=== PATIENT | female | born 1955 | race Caucasian/White ===

== ENCOUNTER 2017-10-29 06:19 | Observation (INO) | payer BC ==
--- NOTE | 2017-10-28 11:37 | PDGENHP ---
History and Physical History and Physical: Assessment and Plan: 1. Cystocele, luis a Shannon has stage III pelvic organ prolapse which is predominantly her anterior and apical compartments. We reviewed all conservative and surgical options. At the end of our discussion she is interested in scheduling a robotic supracervical hysterectomy, sacral colpopexy, and perineorrhaphy. I will perform her preoperative counseling over the phone. She would like to wait until October after her 62th birthday. 2. Third degree uterine prolapse Subjective: Patient ID: Mirtha Blake is a 61 y.o. female who presents to [facility] for relapse. LEXA Shannon is a 61-year-old para 2 woman who presents to discuss pelvic organ prolapse. She has noticed a bulge protruding from her vagina for over one year. She fortunately is able to empty her bladder and bowels fairly normally. She has urinary urgency but no leaking. She has no stress incontinence. She does have dyspareunia which is both from dryness and bumping into tissue. She is a very active woman and likes to exercise. However she has greatly reduced her regimen secondary to her prolapse as well as knee problems requiring a bilateral knee replacement. She is and lives in [facility]. 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 PastMedicalHistory Past Medical History: Diagnosis Date Allergy to pollen Cancer (HC code) Basal cell carcinoma Complication of anesthesia Nausea, problems waking up Dermatologic disease Urinary tract infection PastSurgicalHistory Past Surgical History: Procedure Laterality Date SECTION 1985 OVARY REMOVAL PREVIOUS SURGERIES CURRENT MEDICATIONS: Current Outpatient Prescriptions Medication Sig cholecalciferol (VITAMIN D3) 2,000 unit capsule Take 2,000 Units by mouth daily. TURMERIC ROOT EXTRACT PO Take by mouth daily. VITAMIN B COMPLEX PO Take by mouth daily. No current facility-administered medications for this visit. ALLERGIES: Patient has no known allergies. I have reviewed, verified and agree with the past medical, surgical, , family, social and ROS history as documented by the RN today. Objective: Vital Signs: Visit Vitals BP 122/76 Pulse 78 Temp 36.9 C (98.5 F) (Temporal Artery) Resp 16 Ht 1.702 m (5' 7") Wt 83.7 kg (184 lb 9.6 oz) SpO2 97% BMI 28.91 kg/m Physical Exam Gen: This is an alert, well developed woman in no distress. Neuro: She moves all extremities. Psych: She is appropriate, oriented, with normal affect. Neck: No thyroid enlargement, adenopathy, or tenderness. Lungs: Clear to ascultation, no wheezes or rales. Heart: Regular rate and rhythm without obvious murmurs. Abdomen: Soft, non-tender, without guarding, rebound, or masses. Extremities: No edema or cyanosis. Pelvic: Normal external genitalia. Cervix without lesions or discharge. Uterus normal sized, mobile, non-tender. Adnexa non-tender without enlargement. She has a third-degree cystocele a borderline third-degree uterine prolapse and second-degree rectocele. The introitus is gaping. The vagina is atrophic. POP-Q Values are: Aa= +2, Ba= +3, C= +1 Gh= 5.5, pb= 2, tvl= 10 Ap= 0, Bp= 0, D= -3 DATA: I have reviewed the pertinent medical records. TIME/COMMUNICATION: I personally spent a total of 45 minutes. Of that 35 minutes was counseling/ coordination of patient's care. See my note above for details. Kevin Mejia MD Board Certified Female Pelvic Medicine and Reconstructive Surgery Director of Minimally Invasive Gynecologic Surgery, [facility] Surgeon in Minimally Invasive Gynecologic Surgery [facility] Surgeon in Robotic Surgery
[2017-10-29] MEDS ORDERED: ACETAMINOPHEN 500 MG TAB PO ONE (06:48)
[2017-10-29] MEDS ORDERED: ceFAZolin 2 GM/SWFI 2 GM/20 ML SYR IVP ONE (06:48)
[2017-10-29] MEDS ORDERED: LR 1,000 ML IV ONE (06:48)
[2017-10-29] MEDS ORDERED: PHENAZOPYRIDINE HCL 200 MG TAB PO ONE (06:48)
[2017-10-29] MEDS ORDERED: LIDOCAINE 1% 2 ML INJ ID PRN (06:48)
[2017-10-29] MEDS ORDERED: ceFAZolin 2 GM/DEXTROSE 100 ML IV ONE (07:00)
[2017-10-29] MEDS ORDERED: BUPIVACAINE/EPI 0.5% 30 ML SDV ONE (07:52)
[2017-10-29] MEDS ORDERED: FAMOTIDINE 20 MG in NS 100 ML IV ONE (07:53)
[2017-10-29] MEDS ORDERED: FAMOTIDINE 20 MG/NACL 50 ML IV ONE (08:00)
[2017-10-29] MEDS ORDERED: SCOPOLAMINE HYDROBROMIDE 1 MG/3 DAYS PATCH TD SCH (08:00)
[2017-10-29] MEDS ORDERED: fentaNYL 250 MCG/5 ML INJ ONE (08:16)
[2017-10-29] MEDS ORDERED: PROPOFOL/EMULSION 500 MG/50 ML BOTTLE IV ONE (08:17)
[2017-10-29] MEDS ORDERED: NALOXONE HCL 0.4 MG/ML INJ IVP PRN (09:26)
[2017-10-29] MEDS ORDERED: ONDANSETRON 4 MG/2 ML VIAL IVP PRN ×2 (09:26→10:29)
[2017-10-29] MEDS ORDERED: LABETALOL HCL 5 MG/ML 20 ML MDV IVP PRN (09:26)
[2017-10-29] MEDS ORDERED: HYDROmorphONE/DILAUDID 2 MG/ML INJ IVP PRN (09:26)
[2017-10-29] MEDS ORDERED: fentaNYL 100 MCG/2 ML INJ IVP PRN (09:26)
[2017-10-29] MEDS ORDERED: MEPERIDINE 25 MG/0.5 ML AMP IVP PRN (09:26)
[2017-10-29] MEDS ORDERED: oxyCODONE IR 5 MG TAB PO PRN (09:26)
[2017-10-29] MEDS ORDERED: PROMETHAZINE HCL 25 MG/ML INJ IVP PRN ×2 (09:26→10:28)
[2017-10-29] MEDS ORDERED: ALBUTEROL 3 ML DEYVIAL IH PRN (09:26)
--- NOTE | 2017-10-29 09:29 | PDANEPAE ---
ANE Past Medical History - Cardiovascular History Hx Hypertension: No Hx Arrhythmias: No Hx Chest Pain: No Hx Coronary Artery / Peripheral Vascular Disease: No Hx CHF / Valvular Disease: No Hx Palpitations: Yes Cardiovascular History Comment: INTERMITTENT RELATED TO PAC'S. CARDIAC WORKUP 2016 NEG - Pulmonary History Hx COPD: No Hx Asthma/Reactive Airway Disease: No Hx Recent Upper Respiratory Infection: No Hx Oxygen in Use at Home: No Hx Sleep Apnea: No Sleep Apnea Screening Result - Last Documented: Negative - Neurologic History Hx Cerebrovascular Accident: No Hx Seizures: No Hx Dementia: No - Endocrine History Hx Diabetes: No - Renal History Hx Renal Disorders: No - Liver History Hx Hepatic Disorders: No - Neurological & Psychiatric Hx Hx Neurological and Psychiatric Disorders: No - Cancer History Hx Cancer: Yes Cancer History Comment: SKIN - Congenital Disorder History Hx Congenital Disorders: No - GI History Hx Gastrointestinal Disorders: No - Other Health History Other Health History: OSTEOARTHRITIS - Chronic Pain History Chronic Pain: Yes (CRISTI KNEE'S,VAGINALLY) - Surgical History Prior Surgeries: RT OVARIAN CYSTECTOMY. ANE Review of Systems Review of Systems: - Exercise capacity METS (RN): 4 METS ANE Patient History - Allergies Allergies/Adverse Reactions: No Known Allergies Allergy (Unverified 09/18/17 14:34) - Home Medications Home Medications: Acetaminophen [Tylenol 325mg (*)] 325 mg PO DAILY PRN 09/18/17 [Last Taken 10/18] Cholecalciferol Vit D3 [Vitamin D3 (*)] 1,000 units PO DAILY 09/18/17 [Last Taken 10/18/17] Herbals/Supplements -Info Only 1 ea PO DAILY 09/18/17 [Last Taken 10/18/17] Vitamin B Complex [Vitamin B Complex (OTC)] 1 each PO DAILY 09/18/17 [Last Taken 10/18/17] - NPO status NPO Since - Liquids (Date): 10/29/17 NPO Since - Liquids (Time): 06:30 NPO Since - Solids (Date): 10/28/17 - Smoking Hx Smoking Status: Never smoked ANE Labs/Vital Signs - Vital Signs Blood Pressure: 123/91 Heart Rate: 75 Respiratory Rate: 16 O2 Sat (%): 95 Height: 170.18 cm Weight: 79.379 kg ANE Physical Exam - Airway Mallampati Score: Class 2 Mouth exam: normal dental/mouth exam - Pulmonary Pulmonary: no respiratory distress, clear to auscultation - Cardiovascular Cardiovascular: regular rate and rhythym, no murmur, rub, or gallop - ASA Status ASA Status: II ANE Anesthesia Plan Anesthesia Plan: general endotracheal anesthesia
[2017-10-29] MEDS ORDERED: KETOROLAC 30 MG/1 ML SDV ONE (09:44)
[2017-10-29] MEDS ORDERED: SUCCINYLCHOLINE CHLORIDE 200 MG/10 ML SYR IVP ONE (09:44)
[2017-10-29] MEDS ORDERED: ONDANSETRON 4 MG/2 ML VIAL ONE (09:44)
[2017-10-29] MEDS ORDERED: ROCURONIUM 50 MG/5 ML VIAL ONE (09:44)
--- NOTE | 2017-10-29 10:27 | PDHPUP ---
History & Physical Update H&P update statement: This history and physical update is based on an assessment of the patient which was completed after admission or registration (within 24 hours), but prior to the surgery/procedure. H&P update: H&P reviewed & patient examined, no change in patient's condition since H&P completed
[2017-10-29] MEDS ORDERED: HYDROmorphONE/DILAUDID 1 MG/ML INJ IVP PRN (10:28)
[2017-10-29] MEDS ORDERED: HYDROCODONE/APAP 5/325 TAB PO PRN (10:28)
--- NOTE | 2017-10-29 10:28 | POSTOPPROG ---
Post Op Note Date of Operation: 10/29/17 Surgeon: Kevin Mejia Job Foreman: Janet Prieto Anesthesiologist: Jhony Anesthesia: GET(General Endotracheal) Pre-op Diagnosis: Uterovaginal prolapse Post-op Diagnosis: same Procedure: Robotic hyst/LSO, sacrocervicopexy with mesh, cysto Findings: Ureters function at end of case Inf/Abcess present in the surg proc area at time of surgery?: No EBL: Minimal Complications: None Specimen(s): Uterus, left tube and ovary
[2017-10-29] MEDS ORDERED: ONDANSETRON DISINTEGRATING 4 MG TAB PO PRN (10:29)
[2017-10-29] MEDS ORDERED: LR 1,000 ML IV SCH (10:30)
--- NOTE | 2017-10-29 10:55 | POSTANESTH ---
Post Anesthetic Evaluation Cardiovascular Status: Normal, Stable Respiratory Status: Normal, Stable Level of Consciousness/Mental Status: Can Participate in Eval, Mildly Sleepy, Arousable Pain Control: Adequate, Prn Tx Ordered Nausea/Vomiting Control: Adequate, Prn Tx Ordered Complications Possibly Related to Anesthesia: None Noted
--- NOTE | 2017-10-29 11:14 | GOP ---
[f rep st] OPERATIVE REPORT DATE OF OPERATION: 10/29/2017 SURGEON: Kevin Mejia MD WINDOWS SECURITY ANALYST: Janet Prieto CFA ANESTHESIA: General. PREOPERATIVE DIAGNOSIS: 1. Uterine prolapse. 2. Cystocele. 3. Rectocele. POSTOPERATIVE DIAGNOSIS: 1. Uterine prolapse. 2. Cystocele. 3. Rectocele. PROCEDURE PERFORMED: 1. Robotic-assisted laparoscopic hysterectomy, left salpingo-oophorectomy. 2. Sacrocervicopexy with mesh. 3. Repair of cystocele and rectocele. 4. Perineorrhaphy. 5. Cystoscopy. FINDINGS: SPECIMENS: Uterus, left tube and ovary. ESTIMATED BLOOD LOSS: Scant. DESCRIPTION OF PROCEDURE: The patient was taken to the operating room where she identified. General anesthesia was administered and found to be adequate. She was placed in the lithotomy position and prepared and draped in normal sterile fashion. A Bundy catheter was placed in her bladder. A 1 cm infraumbilical incision was made with a scalpel. The Veress needle with the CO2 gas flowing w as advanced into the peritoneal cavity. The abdomen was insufflated with carbon dioxide gas. The 12 mm trocar, followed by the laparoscope were then inserted. The upper abdomen was unremarkable. Two lateral ports were placed on either side under direct visualization. She then was placed in [place] en[place] position and the Da Iveth robot docked on the left side. The instruments were brought into th e abdominal cavity under direct visualization. The patient previously had her right tube and ovary removed. The remainder of the pelvis was unremar kable. The left round ligament was divided. The anterior leaf of the broad ligament was incised tow eliseo the bifurcation of the left common iliac vessels. The course of the ureters was easy to identify . A window was created anterior to the left ureter to skeletonize the infundibulopelvic vessels. Th ey were then cauterized and transected. The anterior leaf of the broad ligament was then incised ove r the left uterine vessels and across the cervix. The left uterine vasculature was then cauterized a nd transected. The right round ligament was divided. The anterior leaf was further incised and the right uterine va sculature and cauterized and transected. The uterus was then bivalved to aid in removal through the umbilicus. The uterus and upper two-thirds of the cervix were amputated from the lower third of the cervix with the hot asha. The specimen was placed in the right upper quadrant for later removal. The Colpo-Probe was then placed in the vagina. The bladder was further dissected off the anterior va ginal wall down to the level of the bladder neck. The rectovaginal space was then entered and the re ctum dissected off the posterior vaginal wall down to the level of the perineal body. Measurements w ere then obtained and the mesh trimmed to size. The peritoneum over the sacral promontory was incised. The fat pad was gently dissected off the ante rior longitudinal ligament. The mesh was brought into the abdominal cavity. Three sutures of 4-0 Go re-Magdaleno were used to attach the distal posterior mesh to the perineal body. Two additional rows of Go re-Magdaleno sutures were placed posteriorly, three rows were placed anteriorly to suture down to the level of bladder neck and laterally to the paravaginal tissue. The Colpo-Probe was removed. The sacral a rm of the mesh was placed over the promontory and the tension adjusted. I then scrubbed back into the case to examine the vagina. The tension was further adjusted to resolv e the cystocele and rectocele without undue tension on the vagina. Three sutures of 2-0 [place]-Magdaleno wer e used to attach the sacral arm of the mesh to the anterior longitudinal ligament at the level of the upper first sacral vertebral body. The mesh was then covered with peritoneum. The robot was then u ndocked. The specimen removed through the umbilicus. The fascia was closed with 0 Vicryl, skin with 4-0 Monocryl and surgical adhesive. Cystoscopy was then performed. Both ureters had vigorous jets of urine. There was no evidence of bl adder, nor urethral injury seen. No mesh, nor suture was seen within the bladder, nor urethra. No o bvious pathology was seen. A transverse incision was then made along the perineal body. The epithelium was gently dissected off the underlying rectovaginal connective tissue. The rectovaginal septum was then reattached to the p erineal body with interrupted sutures of 0 Vicryl. The transverse perineal and bulbous spongiosis mu scles were plicated with 0 Vicryl. The excess epithelium was trimmed and closed with a running 2-0 V icryl suture. Vaginal packing was then placed. Anesthesia was reversed. The patient taken the PACU awake, in stable condition. COMPLICATIONS: None. DISPOSITION: Patient stable to PACU. /[id number]/MODL
[2017-10-29] MEDS: ceFAZolin 2 GM/DEXTROSE 100 ML IV SCH ×2 (15:00→22:47)
[2017-10-29] MEDS: KETOROLAC 30 MG/1 ML SDV IVP SCH ×3 (15:12→22:52)
[2017-10-29] MEDS: SIMETHICONE 80 MG TAB CHEW PO SCH ×3 (15:28→22:54)
[2017-10-29] MEDS: DOCUSATE SODIUM 100 MG CAP PO SCH (22:52)
[2017-10-30] MEDS: KETOROLAC 30 MG/1 ML SDV IVP SCH (02:07)
[2017-10-30] MEDS: SIMETHICONE 80 MG TAB CHEW PO SCH (07:40)
[2017-10-30 08:54] VITALS: BP 98/65
[2017-10-30] MEDS: DOCUSATE SODIUM 100 MG CAP PO SCH (08:57)
== END 2017-10-30 11:00 | disposition home or self-care (01) ==
LOC: F3E 06:19 → FOB 11:47
PROVIDERS: ADMIT Obstetrics & Gynecology; ATTEND Obstetrics & Gynecology
PROC: 0USG4ZZ Reposition Vagina, Percutaneous Endoscopic Approach (ICD-10-PCS; principal; 2017-10-29 08:15)
PROC: 0DQP0ZZ Repair Rectum, Open Approach (ICD-10-PCS; principal; 2017-10-29 08:15)
PROC: 0UT94ZZ Resection of Uterus, Percutaneous Endoscopic Approach (ICD-10-PCS; principal; 2017-10-29 08:15)
PROC: 0UTC4ZZ Resection of Cervix, Percutaneous Endoscopic Approach (ICD-10-PCS; principal; 2017-10-29 08:15)
PROC: 0TJ98ZZ Inspection of Ureter, Via Natural or Artificial Opening Endoscopic (ICD-10-PCS; principal; 2017-10-29 08:15)
PROC: 0UT64ZZ Resection of Left Fallopian Tube, Percutaneous Endoscopic Approach (ICD-10-PCS; principal; 2017-10-29 08:15)
PROC: 0UT14ZZ Resection of Left Ovary, Percutaneous Endoscopic Approach (ICD-10-PCS; principal; 2017-10-29 08:15)
DX: N81.3 Complete uterovaginal prolapse (principal); Z96.653 Presence of artificial knee joint, bilateral; Z85.828 Personal history of other malignant neoplasm of skin; Z87.440 Personal history of urinary (tract) infections
CPT/HCPCS: 57250; 57425; 58571; G0378; C1763; J0330; J0690; J1885; J2405; J2704; J3010

== ENCOUNTER → 2018-03-19 | Outpatient (CLI) | payer BC | LOC: FIMAGING 13:43 | PROVIDERS: ATTEND Orthopaedic Surgery | DX: Z01.818 Encounter for other preprocedural examination (principal); M17.11 Unilateral primary osteoarthritis, right knee; M94.8X6 Other specified disorders of cartilage, lower leg ==

== ENCOUNTER → 2018-04-06 | Outpatient (CLI) | payer BC | LOC: FIMAGING 08:56 | PROVIDERS: ATTEND Orthopaedic Surgery | DX: M17.11 Unilateral primary osteoarthritis, right knee (principal) ==

== ENCOUNTER 2018-04-08 10:21 | Observation (INO) | payer BC ==
[~2018-04-08 10:21] MED LIST: ROPIVACAINE 0.2% 80 MG, EPINEPHrine 0.2 MG, KETOROLAC TROMETHAMINE 30 MG in SYRINGE 0 ML IU ONE; TRANEXAMIC ACID 3,000 MG in NS (SYRINGE) 50 ML IRR ONE
[2018-04-08] MEDS ORDERED: FAMOTIDINE 20 MG TAB PO ONE (11:04)
[2018-04-08] MEDS ORDERED: ceFAZolin 2 GM/DEXTROSE 100 ML IV ONE (11:04)
[2018-04-08] MEDS ORDERED: LIDOCAINE 1% 2 ML INJ ID PRN (11:04)
[2018-04-08] MEDS ORDERED: LR 1,000 ML IV ONE (11:04)
[2018-04-08] MEDS ORDERED: DEXAMETHASONE 4 MG/ML VIAL IVP ONE (11:04)
[2018-04-08] MEDS ORDERED: ACETAMINOPHEN 325 MG TAB PO ONE (11:04)
[2018-04-08] MEDS ORDERED: TRANEXAMIC ACID 3,000 MG/50 ML BAG IRR ONE (11:17)
[2018-04-08] MEDS ORDERED: PROPOFOL/EMULSION 500 MG/50 ML BOTTLE IV ONE (14:11)
--- NOTE | 2018-04-08 14:11 | PDANEPAE ---
ANE History of Present Illness 62 year old female for right knee arthroplasty. Otherwise healthy. ANE Past Medical History - Cardiovascular History Hx Hypertension: No Hx Arrhythmias: No Hx Chest Pain: No Hx Coronary Artery / Peripheral Vascular Disease: No Hx CHF / Valvular Disease: No Hx Palpitations: Yes Cardiovascular History Comment: INTERMITTENT RELATED TO PAC'S. CARDIAC WORKUP 2016 NEG - Pulmonary History Hx COPD: No Hx Asthma/Reactive Airway Disease: No Hx Recent Upper Respiratory Infection: No Hx Oxygen in Use at Home: No Hx Sleep Apnea: No Sleep Apnea Screening Result - Last Documented: Negative - Neurologic History Hx Cerebrovascular Accident: No Hx Seizures: No Hx Dementia: No - Endocrine History Hx Diabetes: No - Renal History Hx Renal Disorders: No - Liver History Hx Hepatic Disorders: No - Neurological & Psychiatric Hx Hx Neurological and Psychiatric Disorders: No - Cancer History Hx Cancer: Yes Cancer History Comment: SKIN - Congenital Disorder History Hx Congenital Disorders: No - GI History Hx Gastrointestinal Disorders: No - Other Health History Other Health History: OSTEOARTHRITIS - Chronic Pain History Chronic Pain: Yes (CRISTI KNEE'S,VAGINALLY) - Surgical History Prior Surgeries: RT OVARIAN CYSTECTOMY. ANE Review of Systems Review of systems is: negative Review of Systems: - Exercise capacity METS (RN): 4 METS ANE Patient History - Allergies Allergies/Adverse Reactions: No Known Allergies Allergy (Verified 04/08/18 11:30) - Home Medications Home Medications: Acetaminophen [Tylenol 325mg (*)] 325 mg PO DAILY PRN 09/18/17 [Last Taken 04/07 09:00] Cholecalciferol Vit D3 [Vitamin D3 (*)] 1,000 units PO DAILY 09/18/17 [Last Taken 03/22/18] Herbals/Supplements -Info Only 1 ea PO DAILY 09/18/17 [Last Taken 03/22/18] Vitamin B Complex [Vitamin B Complex (OTC)] 1 each PO DAILY 09/18/17 [Last Taken 03/22/18] - NPO status NPO Since - Liquids (Date): 04/08/18 NPO Since - Liquids (Time): 09:30 NPO Since - Solids (Date): 04/07/18 NPO Since - Solids (Time): 18:30 - Smoking Hx Smoking Status: Never smoked ANE Labs/Vital Signs - Vital Signs Blood Pressure: 134/77 Heart Rate: 65 Respiratory Rate: 16 O2 Sat (%): 96 Height: 171.45 cm Weight: 81.647 kg ANE Physical Exam - Airway Neck exam: FROM Mallampati Score: Class 2 Mouth exam: normal dental/mouth exam - Pulmonary Pulmonary: no respiratory distress - Cardiovascular Cardiovascular: regular rate and rhythym - ASA Status ASA Status: I
[2018-04-08] MEDS ORDERED: fentaNYL 100 MCG/2 ML INJ ONE (14:14)
[2018-04-08] MEDS ORDERED: METOCLOPRAMIDE 10 MG/2 ML VIAL IVP PRN (14:48)
[2018-04-08] MEDS ORDERED: PROMETHAZINE HCL 25 MG SUPPR PR PRN (14:48)
[2018-04-08] MEDS ORDERED: POLYETHYLENE GLYCOL 3350 17 GM PKT PO PRN (14:48)
[2018-04-08] MEDS ORDERED: MAGNESIUM HYDROXIDE 30 ML UDCUP PO PRN (14:48)
[2018-04-08] MEDS ORDERED: TEMAZEPAM 15 MG CAP PO PRN (14:48)
[2018-04-08] MEDS ORDERED: ONDANSETRON 4 MG/2 ML VIAL IVP PRN (14:48)
[2018-04-08] MEDS ORDERED: LACTULOSE 20 GM/30 ML UDCUP PO PRN (14:48)
[2018-04-08] MEDS ORDERED: PROMETHAZINE HCL 25 MG/ML INJ IVP PRN (14:48)
[2018-04-08] MEDS ORDERED: ONDANSETRON DISINTEGRATING 4 MG TAB PO PRN (14:48)
[2018-04-08] MEDS ORDERED: diphenhydrAMINE 25 MG CAP PO PRN (14:48)
[2018-04-08] MEDS ORDERED: DIPHENOXYLATE/ATROPINE LOMOTIL 1 TAB PO PRN (14:48)
[2018-04-08] MEDS ORDERED: BISACODYL 10 MG SUPP PR PRN (14:48)
[2018-04-08] MEDS ORDERED: LR 1,000 ML IV SCH (15:00)
[2018-04-08] MEDS ORDERED: LABETALOL HCL 5 MG/ML 20 ML MDV IVP PRN (15:01)
[2018-04-08] MEDS ORDERED: LR 500 ML IV PRN (15:01)
[2018-04-08] MEDS ORDERED: ALBUTEROL 3 ML DEYVIAL IH PRN (15:01)
[2018-04-08] MEDS ORDERED: NALOXONE HCL 0.4 MG/ML INJ IVP PRN (15:01)
[2018-04-08] MEDS ORDERED: fentaNYL 100 MCG/2 ML INJ IVP PRN (15:01)
--- NOTE | 2018-04-08 15:58 | POSTOPPROG ---
Post Op Note Date of Operation: 04/08/18 Surgeon: Felicia Paniagua Ship Boat Or Barge Mate: Jennifer Paniagua PAc Anesthesiologist: Maribell Anesthesia: Spinal Pre-op Diagnosis: R knee DJD Post-op Diagnosis: same Indication: pain Procedure: R TKA Findings: DJD knee Inf/Abcess present in the surg proc area at time of surgery?: No EBL: 50-100
--- NOTE | 2018-04-08 16:01 | POSTANESTH ---
Post Anesthetic Evaluation Cardiovascular Status: Normal, Stable Respiratory Status: Normal, Stable Level of Consciousness/Mental Status: Can Participate in Eval Pain Control: Adequate, Prn Tx Ordered Nausea/Vomiting Control: Adequate, Prn Tx Ordered Complications Possibly Related to Anesthesia: None Noted (adductor canal block done in PACU with ultrasound guidance. Images in chart. Bupivicaine .5% 20 cc given. No complications.)
[2018-04-08] MEDS: ACETAMINOPHEN 325 MG TAB PO SCH ×2 (18:04→22:50)
[2018-04-08] MEDS: SENNOSIDES/DOCUSATE SODIUM TAB PO SCH (20:00)
[2018-04-08] MEDS: FAMOTIDINE 20 MG TAB PO SCH (20:02)
[2018-04-08] MEDS: ASPIRIN 81 MG CHEWABLE TAB PO SCH (20:02)
[2018-04-08] MEDS: oxyCODONE IR 5 MG TAB PO PRN (22:42)
[2018-04-08] MEDS: ceFAZolin 2 GM/DEXTROSE 100 ML IV SCH (22:51)
[2018-04-08] MEDS: CYCLOBENZAPRINE 10 MG TAB PO PRN (23:49)
[2018-04-09] MEDS: ACETAMINOPHEN 325 MG TAB PO SCH (05:01)
[2018-04-09] MEDS: ceFAZolin 2 GM/DEXTROSE 100 ML IV SCH (05:02)
[2018-04-09 08:01] VITALS: BP 109/70
[2018-04-09] MEDS: FAMOTIDINE 20 MG TAB PO SCH (08:23)
[2018-04-09] MEDS: ASPIRIN 81 MG CHEWABLE TAB PO SCH (08:23)
[2018-04-09] MEDS: SENNOSIDES/DOCUSATE SODIUM TAB PO SCH (08:23)
[2018-04-09] MEDS: oxyCODONE IR 5 MG TAB PO PRN (09:04)
[2018-04-09] MEDS: CYCLOBENZAPRINE 10 MG TAB PO PRN (09:04)
--- NOTE | 2018-04-09 10:53 | GOP ---
DATE OF OPERATION: 04/08/2018 SURGEON: Christiano Paniagua MD KITCHEN STEWARD: RONAL Salas. ANESTHESIA: Spinal. PREOPERATIVE DIAGNOSIS: Right knee osteoarthritis. POSTOPERATIVE DIAGNOSIS: Right knee osteoarthritis. PROCEDURE PERFORMED: Right total knee arthroplasty with computer navigation, robotic assist. FINDINGS: ESTIMATED BLOOD LOSS: 30 cc. INDICATIONS: The patient is a 62-year-old female with severe and progressive pain and deformity of t he right knee unresponsive to conservative care. The risks and benefits of surgical intervention wer e explained in detail. DESCRIPTION OF PROCEDURE: The patient was brought to the operative room and placed on the table in t he supine position. Spinal anesthesia was induced without difficulty. A pneumatic tourniquet was appl ied about the right proximal thigh, and the leg was prepped and draped in a sterile fashion. The leg noguera was applied. After exsanguination by elevation the tourniquet was inflated to 250 mmHg. Incision was made anterior medial from the tibial tuberosity to a point 2 cm proximal to the superior pole of the patella. Medial parapatellar arthrotomy was carried out from the superior pole of the pa tella and posteriorly in line with the fibers of the Type II VMO. The medial collateral ligament was elevated and the infrapatellar fat pad was resected. The patella was everted and the articular surface was excised. A 35 mm patellar button was placed. Attention was turned first to the distal aspect of the femur. After exposure of the femur, 2 half pi ns were placed for fixation of the femoral array. In a similar fashion, 2 pins were placed anteromed ial on the tibia for fixation of the tibial array. External land marking and registration of the hip center were performed without difficulty. Internal femoral and tibial registration were carried out without difficulty and the femoral and tibial checkpoints were placed and verified for accuracy. Attention was turned to the femur. The foot print for the size 4 femoral component was cut with the saw using the [employer] robotic system and verified for accuracy against the CT based plan. In a similar f ashion, the saw was used to cut the footprint for the size 4 tibial component using the [employer] system an d verified for accuracy against the CT based plan. The tibial articular surface was excised without d ifficulty, followed by the intercondylar box cut. The knee was extended and the remnants of the medial and lateral meniscus were excised. The posterior capsule was injected with ropivacaine, epinephrine and Toradol. A size 4 tibial tray was positioned . Trial reduction was then carried out. There was excellent range of motion, alignment, and stability using the 4 x 11 mm polyethylene. All trials were then removed. The joint was thoroughly irrigated and carefully dried. The press-fit c omponents were implanted. The permanent 4 x 11 mm polyethylene was placed without difficulty. The tourniquet was deflated and all bleeders were coagulated. The wound was thoroughly irrigated and closed using interrupted sutures of 2-0 Vicryl for the joint capsule. The subcu was closed with 3-0 V icryl and the skin with 4-0 Monocryl. Dermabond and Steri-Strips were applied followed by a compress maura dressing. The patient was then moved from the operating room to the recovery room in good conditi on, having tolerated the procedure well. PATHOLOGY: Severe lateral patellofemoral osteoarthritis. /[id number]/MODL
--- NOTE | 2018-04-09 17:17 | SOAPPROG ---
SOAP Progress Note Assessment/Plan: Assessment: Patient is doing well POD 1 s/p R TKA Pain management: pain is well controlled on oral pain meds. VTE ppx: recommend aspirin 81 mg BID for 4 weeks, cont MINDY and SCDs D/c planning: d/c to home today pending release from PT Plan: 04/09/18 17:16 04/09/18 17:17 Subjective: patient is doing well today, denies SOb ,chest pain and n/v Objective: Vital Signs Temp Pulse Resp BP Pulse Ox 36.3 C 68 14 109/70 96 04/09/18 08:00 04/09/18 08:00 04/09/18 08:00 04/09/18 08:00 04/09/18 08:00 Laboratory Results 04/09/18 04:18 04/08/18 04/09/18 04/10/18 05:59 05:59 05:59 Intake Total 1500 300 Output Total 1050 450 Balance 450 -150 RLE; incision dressing is clean and dry, NVI, +pf/df ICD10 Worksheet Patient Problems: Problems Problem Status Onset Cystocele, lateral Acute Primary localized osteoarthritis of right knee Acute Third degree uterine prolapse Acute
--- NOTE | 2018-04-10 07:05 | GDS ---
ADMISSION DIAGNOSIS: Right knee osteoarthritis. DISCHARGE DIAGNOSIS: Right knee osteoarthritis. PROCEDURE: Right total knee arthroplasty, robotic assisted. VTE PROPHYLAXIS: Recommend aspirin 81 mg twice daily for 4 weeks. BRIEF DESCRIPTION OF HOSPITAL STAY: Patient was admitted for an elective joint arthroplasty. The pa seven tolerated the procedure well and has passed physical therapy. The patient was given appropriat e antibiotic prophylaxis and venous thromboembolism prophylaxis. The patient's pain was well control led on oral pain medication, patient was holding down food, and had urinated. Decision was made to d ischarge the patient. The patient was given post-operative prescriptions pre-operatively. PLAN: To follow up as scheduled with Dr. Paniagua's office April 27 at 12:45 p.m. /[id number]/MODL
== END 2018-04-09 11:30 | disposition home or self-care (01) ==
LOC: F3N 10:46 → INTOOBSV 10:46 → F3N 17:39
PROVIDERS: ADMIT Orthopaedic Surgery; ATTEND Orthopaedic Surgery
DX: M17.11 Unilateral primary osteoarthritis, right knee (principal)
CPT/HCPCS: 27447; 73560; 97116; 97161; G0378; J0171; J0690; J1100; J1885; J2270; J2704; J2795; J3010